=== PATIENT | male | born 1990 | race Caucasian/White ===

== ENCOUNTER 2018-10-29 09:20 | Emergency (ER) | payer MEDICAID ==
[~2018-10-29] VITALS: Ht 182.9 cm; Wt 77.5 kg
[~2018-10-29 09:20] MED LIST: ALPR1TAB2 PO
[2018-10-29 09:22] VITALS: BP 127/73
[2018-10-29] MEDS ORDERED: LORazepam 1MG TABLET PO ONE (10:00)
--- NOTE | 2018-10-29 10:05 | NUR ---
PT ANXIOUS. OFF HEROIN FOR OVER 3 MONTHS AND FEELS LIKE HE MAY HAVE A RELAPSE
[2018-10-29] MEDS ORDERED: LORazepam 1MG TABLET ONE (10:16)
--- NOTE | 2018-10-29 10:31 | NUR ---
PT GIVEN LIST OF CLINICS AND ADDICTION RESOURCES AND A BUS PASS. PROVIDED DISCHARGE INSTRUCTIONS. AMBULATED TO DISCHARGE WINDOW, STEADY GAIT
== END 2018-10-29 10:33 | disposition home or self-care (01) ==
LOC: ED 09:57
DX: F41.9 Anxiety disorder, unspecified (principal); F17.210 Nicotine dependence, cigarettes, uncomplicated
CPT/HCPCS: 99284